=== PATIENT | female | born 1985 | race Caucasian/White ===

== ENCOUNTER 2019-05-12 01:24 | Emergency (ER) | payer BC, MEDICAID ==
[2019-05-12 01:36] VITALS: BP 119/64; PULSE 102
--- NOTE | 2019-05-12 01:56 | EDM.PDOC ---
ED HPI GENERAL MEDICAL PROBLEM - General Chief Complaint: Fever Stated Complaint: FEVER/HEADACHE Time Seen by Provider: 05/12/19 01:50 - History of Present Illness INITIAL COMMENTS - FREE TEXT/NARRATIVE: 33-year-old female presents emergency room with fevers and headache. Patient started feeling poorly Friday morning it is now Friday morning. She' s had fevers as high as 104. She has a little bit of a cough but not too bad she was seen in the clinic yesterday and had a negative flu screen. She has not had a flu shot this year. She has a headache which she doesn't normally get. Her appetite is diminished but she is drinking plenty of fluids. - Related Data Allergies Allergy/AdvReac Type Severity Reaction Status Date / Time Penicillins Allergy Rash Verified 05/12/19 01:36 Home Meds: Home Meds Vit Calc,Iron,Folic [ Vitamins] 1 tab PO DAILY 02/20/16 [ History] Ciprofloxacin HCl [Cipro] 500 mg PO Q12H #14 tablet 05/12/19 [Rx] Potassium Chloride [Klor-Con M20] 20 meq PO Q12H #8 tab.er 05/12/19 [Rx] Past Medical History - Past Health History Medical/Surgical History: Denies Medical/Surgical History HEENT History: Reports: None Genitourinary History: Reports: None [employer]ER History: Reports: - Past Surgical History HEENT Surgical History: Reports: Oral Surgery Female Surgical History: Reports: Section Social & Family History - Family History Family Medical History: Noncontributory - Tobacco Use Smoking Status *Q: Never Smoker - Caffeine Use Caffeine Use: Reports: Tea - Recreational Drug Use Recreational Drug Use: No ED ROS GENERAL - Review of Systems Review Of Systems: See Below Constitutional: Reports: Fever, Chills. Denies: No Symptoms HEENT: Reports: No Symptoms Respiratory: Reports: Cough. Denies: No Symptoms, Shortness of Breath, Wheezing , Pleuritic Chest Pain, Sputum Cardiovascular: Reports: No Symptoms Endocrine: Reports: No Symptoms GI/Abdominal: Reports: Decreased Appetite, Vomiting. Denies: No Symptoms, Abdominal Pain, Constipation, Diarrhea, Nausea : Reports: No Symptoms Musculoskeletal: Reports: No Symptoms Skin: Reports: No Symptoms Neurological: Reports: Headache. Denies: Confusion Psychiatric: Reports: No Symptoms Hematologic/Lymphatic: Reports: No Symptoms ED EXAM, GENERAL - Physical Exam Exam: See Below Exam Limited By: No Limitations General Appearance: Alert, No Apparent Distress Eye Exam: Bilateral Eye: Normal Inspection, PERRL Ears: Normal External Exam, Normal Canal, Hearing Grossly Normal, Normal TMs Ear Exam: Bilateral Ear: Auricle Normal, Canal Normal, TM normal Nose: Normal Inspection, Normal Mucosa, No Blood Throat/Mouth: Normal Inspection, Normal Lips, Normal Teeth, Normal Gums, Normal Oropharynx, Normal Voice, No Airway Compromise Head: Atraumatic, Normocephalic Neck: Normal Inspection, Supple, Non-Tender, Full Range of Motion, Other (No nuchal rigidity). No: Lymphadenopathy (L), Lymphadenopathy (R), Tender Lateral , Tender Midline Respiratory/Chest: No Respiratory Distress, Lungs Clear, Respiratory Distress Cardiovascular: Regular Rate, Rhythm, No Edema, No Murmur GI/Abdominal: Normal Bowel Sounds, Soft, Non-Tender Back Exam: Normal Inspection. No: CVA Tenderness (L), CVA Tenderness (R) Extremities: Normal Inspection, No Pedal Edema Neurological: Alert, Oriented, Normal Cognition Psychiatric: Normal Affect, Normal Mood Skin Exam: Warm, Dry, Intact Lymphatic: No Adenopathy ED GENERAL MEDICAL PROCEDURES - Lumbar Puncture Indication: Fever, Headache Consent Obtained: Patient Position: Sitting Prep: Sterile Drapes, Betadine Local Anesthesia - Lidocaine (Xylocaine): 1% Plain Local Anesthetic Volume: 4cc Vertebral Interspace: L2/L3 Number of Attempts: 1 Fluid Appearance: Clear Tubes Obtained: 4 Total Fluid Amount: Other (8) Complications: No Sterile Dressing: Other Course - Vital Signs Last Recorded V/S: Last Vital Signs Temp 39.3 C H 05/12/19 05:33 Pulse 102 H 05/12/19 01:32 Resp 20 05/12/19 01:32 BP 119/64 05/12/19 01:32 Pulse Ox 98 05/12/19 01:32 - Orders/Labs/Meds Orders: Active Orders 24 hr Category Date Time Status Chest 2V [CR] Stat Exams 05/12/19 02:03 Taken CSF LACTIC Stat Lab 05/12/19 04:45 Received CULTURE BLOOD [BC] Stat Lab 05/12/19 03:35 Received CULTURE BLOOD [BC] Stat Lab 05/12/19 03:40 Received CULTURE CSF + SMEAR [RM] Stat Lab 05/12/19 04:45 Results CULTURE URINE [RM] Stat Lab 05/12/19 05:31 Ordered Blood Culture x2 Reflex Set [OM.PC] Stat Oth 05/12/19 03:19 Ordered Labs: Laboratory Tests 05/12/19 05/12/19 05/12/19 Range/Units 02:11 02:11 02:11 WBC 16.18 H (3.98-10.04) K/mm3 RBC 4.22 (3.98-5.22) M/mm3 Hgb 11.7 (11.2-15.7) gm/dl Hct 34.4 (34.1-44.9) % MCV 81.5 (79.4-94.8) fl MCH 27.7 (25.6-32.2) pg MCHC 34.0 (32.2-35.5) g/dl RDW Std Deviation 36.2 L (36.4-46.3) fL Plt Count 159 L (182-369) K/mm3 MPV 9.8 (9.4-12.3) fl Neutrophils % (Manual) 78 H (40-60) % Band Neutrophils % 12 H (0-10) % Lymphocytes % (Manual) 3 L (20-40) % Atypical Lymphs % 0 % Monocytes % (Manual) 7 (2-10) % Eosinophils % (Manual) 0 L (0.7-5.8) % Basophils % (Manual) 0 L (0.1-1.2) Toxic Granulation 1+ slight Dohle Bodies Few Platelet Estimate Decreased Plt Morphology Comment Normal RBC Morph Comment Normal Sodium 138 (136-145) mEq/L Potassium 3.1 L (3.5-5.1) mEq/L Chloride 102 (98-107) mEq/L Carbon Dioxide 27 (21-32) mEq/L Anion Gap 12.1 (5-15) BUN 4 L (7-18) mg/dL Creatinine 0.7 (0.55-1.02) mg/dL Est Cr Clr Drug Dosing 114.23 mL/min Estimated GFR (MDRD) > 60 (>60) mL/min BUN/Creatinine Ratio 5.7 L (14-18) Glucose 123 H (74-106) mg/dL Lactic Acid 0.6 (0.4-2.0) mmol/L Calcium 8.3 L (8.5-10.1) mg/dL Total Bilirubin 1.0 (0.2-1.0) mg/dL AST 17 (15-37) U/L ALT 33 (14-59) U/L Alkaline Phosphatase 64 (46-116) U/L C-Reactive Protein 26.9 H* (<1.0) mg/dL Total Protein 6.7 (6.4-8.2) g/dl Albumin 3.1 L (3.4-5.0) g/dl Globulin 3.6 gm/dL Albumin/Globulin Ratio 0.9 L (1-2) Urine Color (Yellow) Urine Appearance (Clear) Urine pH (5.0-8.0) Ur Specific Hecker (1.005-1.030) Urine Protein (Negative) Urine Glucose (UA) (Negative) Urine Ketones (Negative) Urine Occult Blood (Negative) Urine Nitrite (Negative) Urine Bilirubin (Negative) Urine Urobilinogen (0.2-1.0) Ur Leukocyte Esterase (Negative) Urine RBC (0-5) /hpf Urine WBC (0-5) /hpf Urine WBC Clumps (NOT SEEN) /hpf Ur Squamous Epith Cells (0-5) /hpf Urine Bacteria (FEW) /hpf Hyaline Casts (0-5) /lpf Urine Mucus (FEW) /hpf CSF Tube Number CSF Volume ml CSF Appearance (CLEAR) CSF Color CSF Supernatant Appear CSF WBC (0-8) /uL CSF RBC (0-8) /mm3 CSF Seg Neutrophils (0-5) CSF Lymphocytes (0-8) CSF Monocytes (0-0) CSF Glucose (40-70) mg/dl CSF Total Protein (15-45) mg/dl 05/12/19 05/12/19 05/12/19 Range/Units 03:13 04:45 04:45 WBC (3.98-10.04) K/mm3 RBC (3.98-5.22) M/mm3 Hgb (11.2-15.7) gm/dl Hct (34.1-44.9) % MCV (79.4-94.8) fl MCH (25.6-32.2) pg MCHC (32.2-35.5) g/dl RDW Std Deviation (36.4-46.3) fL Plt Count (182-369) K/mm3 MPV (9.4-12.3) fl Neutrophils % (Manual) (40-60) % Band Neutrophils % (0-10) % Lymphocytes % (Manual) (20-40) % Atypical Lymphs % % Monocytes % (Manual) (2-10) % Eosinophils % (Manual) (0.7-5.8) % Basophils % (Manual) (0.1-1.2) Toxic Granulation Dohle Bodies Platelet Estimate Plt Morphology Comment RBC Morph Comment Sodium (136-145) mEq/L Potassium (3.5-5.1) mEq/L Chloride (98-107) mEq/L Carbon Dioxide (21-32) mEq/L Anion Gap (5-15) BUN (7-18) mg/dL Creatinine (0.55-1.02) mg/dL Est Cr Clr Drug Dosing mL/min Estimated GFR (MDRD) (>60) mL/min BUN/Creatinine Ratio (14-18) Glucose (74-106) mg/dL Lactic Acid (0.4-2.0) mmol/L Calcium (8.5-10.1) mg/dL Total Bilirubin (0.2-1.0) mg/dL AST (15-37) U/L ALT (14-59) U/L Alkaline Phosphatase (46-116) U/L C-Reactive Protein (<1.0) mg/dL Total Protein (6.4-8.2) g/dl Albumin (3.4-5.0) g/dl Globulin gm/dL Albumin/Globulin Ratio (1-2) Urine Color Yellow (Yellow) Urine Appearance Slt cloudy H (Clear) Urine pH 6.5 (5.0-8.0) Ur Specific Hecker 1.010 (1.005-1.030) Urine Protein 1+ H (Negative) Urine Glucose (UA) Negative (Negative) Urine Ketones 2+ H (Negative) Urine Occult Blood 1+ H (Negative) Urine Nitrite Negative (Negative) Urine Bilirubin Negative (Negative) Urine Urobilinogen 0.2 (0.2-1.0) Ur Leukocyte Esterase 3+ H (Negative) Urine RBC 5-10 H (0-5) /hpf Urine WBC 20-30 H (0-5) /hpf Urine WBC Clumps Few (NOT SEEN) /hpf Ur Squamous Epith Cells 5-10 H (0-5) /hpf Urine Bacteria Many H (FEW) /hpf Hyaline Casts 0-5 (0-5) /lpf Urine Mucus Few (FEW) /hpf CSF Tube Number 2 CSF Volume 3.0 ml CSF Appearance Clear (CLEAR) CSF Color Colorless CSF Supernatant Appear No xanthochromia CSF WBC 0 (0-8) /uL CSF RBC 0 (0-8) /mm3 CSF Seg Neutrophils 0.0 (0-5) CSF Lymphocytes 0.0 (0-8) CSF Monocytes 0.0 (0-0) CSF Glucose 73.0 H (40-70) mg/dl CSF Total Protein 27.3 (15-45) mg/dl Meds: Medications Discontinued Medications Generic Name Dose Route Start Last Admin Trade Name Freq PRN Reason Stop Dose Admin Acetaminophen 975 mg 05/12/19 05:24 05/12/19 05:31 Tylenol PO 05/12/19 05:25 975 mg NOW ONE Administration Lactated Ringer's 1,000 mls @ 999 mls/hr 05/12/19 02:04 05/12/19 02:18 Ringers, Lactated IV 05/12/19 03:04 999 mls/hr .BOLUS ONE Administration Lactated Ringer's 1,000 mls @ 999 mls/hr 05/12/19 05:00 05/12/19 05:31 Ringers, Lactated IV 05/12/19 06:00 999 mls/hr .BOLUS ONE Administration Ketorolac Tromethamine 15 mg 05/12/19 02:06 05/12/19 02:18 Toradol IVPUSH 05/12/19 02:07 15 mg ONETIME ONE Administration - Re-Assessments/Exams Free Text/Narrative Re-Assessment/Exam: 05/12/19 05:28 Laboratory evaluation was worrisome for an elevated white count with a bandemia persistent headaches not improving with Toradol and IV fluids. Urinalysis appears suspicious for UTI albeit the patient is not having any UTI symptoms no flank tenderness. And no significant abdominal pain. Potassium is a little low at 3.1 discussed the pros and cons with further investigation with the patient such as an LP and she agreed that that would be reasonable given the persistent headaches the fevers the left shift elevated C reactive protein and no clear- cut other explanation. Some LP was performed this was not complicated I cannot get a CSF lactate here protein glucose Gram stain and culture have been ordered. 05/12/19 07:31 CSF protein is normal the lactate is sent out CSF glucose is a little high at 72. Not suggestive of infectious process. Gram stain shows no WBCs no organisms microscopic shows no RBCs no WBCs no other abnormalities that was voiced she states that she's voided a few times recently and she is noticing some discomfort with this to me from the lab personnel. Departure - Departure Time of Disposition: 07:32 Disposition: Home, Self-Care 01 Clinical Impression: Viral syndrome, Urinary tract infection - Discharge Information Prescriptions: Ciprofloxacin HCl [Cipro] 500 mg PO Q12H #14 tablet Potassium Chloride [Klor-Con M20] 20 meq PO Q12H #8 tab.er Referrals: Dorita Medrano PA-C [Primary Care Provider] - Forms: ED Department Discharge Additional Instructions: Return to emergency room if with any questions problems or worsening symptoms. Tylenol or Motrin for fevers and discomfort I would avoid Motrin today resume tomorrow if needed. Take the Cipro, this is an antibiotic one twice daily until all gone. You have been started on a short course of potassium because your potassium was low, take one twice daily until gone. - My Orders Last 24 Hours: My Active Orders 05/12/19 02:03 Chest 2V [CR] Stat 05/12/19 03:19 Blood Culture x2 Reflex Set [OM.PC] Stat 05/12/19 03:35 CULTURE BLOOD [BC] Stat 05/12/19 03:40 CULTURE BLOOD [BC] Stat 05/12/19 04:45 CSF LACTIC Stat CULTURE CSF + SMEAR [RM] Stat 05/12/19 05:31 CULTURE URINE [RM] Stat - Assessment/Plan Last 24 Hours: My Active Orders 05/12/19 02:03 Chest 2V [CR] Stat 05/12/19 03:19 Blood Culture x2 Reflex Set [OM.PC] Stat 05/12/19 03:35 CULTURE BLOOD [BC] Stat 05/12/19 03:40 CULTURE BLOOD [BC] Stat 05/12/19 04:45 CSF LACTIC Stat CULTURE CSF + SMEAR [RM] Stat 05/12/19 05:31 CULTURE URINE [RM] Stat
[2019-05-12] MEDS ORDERED: Lactated Ringers 1,000 ML IV ONE ×2 (02:04→05:00)
[2019-05-12] MEDS ORDERED: Ketorolac 15 MG/ML SDV IVPUSH ONE (02:06)
[2019-05-12] MEDS ORDERED: Acetaminophen 325 MG Tab PO ONE (05:24)
--- NOTE | 2019-05-12 10:40 | CR ---
Chest: Two views of the chest were obtained. Comparison: No prior chest imaging is available. Heart size and mediastinum are normal. Lungs are clear. Bony structures are unremarkable for the patient's age. Pressure: 1. Nothing acute is seen on two-view chest x-ray. Diagnostic code #1 This report was dictated in [place] Standard Time
== END 2019-05-12 08:09 | disposition home or self-care (01) ==
LOC: JD.ED 01:24
DX: B34.9 Viral infection, unspecified (principal); R51 Headache; N39.0 Urinary tract infection, site not specified; Z88.0 Allergy status to penicillin
CPT/HCPCS: 36415; 62270; 71046; 80053; 81001; 82945; 83605; 84157; 85007; 85027; 86140; 87040; 87070; 87086; 87088; 87186; 87205; 89050; 96361; 96374; 99284; A9270; J1885; J7120; 99283